=== PATIENT | male | born 1995 | race Hispanic/Latino ===

== ENCOUNTER 2020-09-20 12:27 | Emergency (ER) | payer MEDICARE ==
[~2020-09-20] VITALS: Ht 170.2 cm; Wt 85.0 kg
[2020-09-20 13:38] VITALS: BP 128/65
== END 2020-09-20 13:38 | disposition home or self-care (01) ==
LOC: ED 12:27
DX: U07.1 COVID-19 (principal); R52 Pain, unspecified